=== PATIENT | female | born 1975 | race Two or more races ===

== ENCOUNTER 2022-01-06 19:57 | Emergency (ER) | payer MEDICAID, OTHER ==
[~2022-01-06] VITALS: Ht 157.5 cm; Wt 70.3 kg
[2022-01-06 20:52] LABS: Basophils # (auto) 0 10 ^3/uL (0-0.2); Eosinophils # (auto) 0.2 10 ^3/uL (0-0.8); Hematocrit 37.3 % (36.0-46.0); Lymphocytes # (auto) 1.6 10 ^3/uL (0.4-5.4); Monocytes # (auto) 0.5 10 ^3/uL (0-1.3); Neutrophils # (auto) 3.9 10 ^3/uL (1.6-8.6); Nucleated Red Blood Cells % 0.1 %
[2022-01-06 20:54] LABS: Basophils % (auto) 0.5 % (0.0-2.0); Eosinophils % (auto) 2.6 % (0.0-7.0); Hemoglobin 11.7 g/dL (12.2-16.2); Lymphocytes % (auto) 25.2 % (10.0-50.0); Mean Corpuscular Hgb Conc. 31.3 g/dL (32.0-36.0); Mean Corpuscular Volume 67.2 fL (80.0-100.0); Monocytes % (auto) 8.6 % (0.0-12.0); Neutrophils % (auto) 63.1 % (37.0-80.0); Red Blood Cells 5.55 10^6/uL (4.0-5.20); Red Cell Distribution Width 15.1 % (11.8-14.3); White Blood Cell 6.2 10^3/uL (4.4-10.8)
[2022-01-06 21:12] LABS: Albumin 3.4 g/dL (3.4-5.0); Calcium 9.2 mg/dL (8.5-10.1); Potassium 4.4 mmol/L (3.5-5.1)
[2022-01-06 21:15] LABS: BUN/Creatinine Ratio 16.7; Bilirubin, Total 0.3 mg/dL (0.2-1.0); Total Protein 7.6 g/dL (6.4-8.2)
[2022-01-07 02:30] VITALS: BP 133/93
[2022-01-07] MEDS ORDERED: DIAZ10TA3 PO (03:37)
== END 2022-01-07 03:44 | disposition home or self-care (01) ==
LOC: ER 19:57
DX: R07.9 Chest pain, unspecified (principal); G89.29 Other chronic pain; E11.9 Type 2 diabetes mellitus without complications; E78.5 Hyperlipidemia, unspecified; Z90.49 Acquired absence of other specified parts of digestive tract; Z88.8 Allergy status to other drugs, medicaments and biological substances
CPT/HCPCS: 36415; 71045; 80053; 83880; 84484; 85025; 93005

== ENCOUNTER 2022-11-30 21:21 | Inpatient (IN) | payer MEDICAID ==
[~2022-11-30] VITALS: Ht 157.5 cm; Wt 74.1 kg
[~2022-11-30 21:21] MED LIST: DIAZ10TA3 PO
[2022-11-30] MEDS ORDERED: SODIUM CHLORIDE 0.9% 1,000 ML IV ONE ×2 (23:30)
[2022-12-01 00:09] LABS: Albumin 3.3 g/dL (3.4-5.0); Basophils # (auto) 0 10 ^3/uL (0-0.2); Basophils % (auto) 0.3 % (0.0-2.0); Calcium 9.3 mg/dL (8.5-10.1); Eosinophils # (auto) 0.3 10 ^3/uL (0-0.8); Eosinophils % (auto) 3.1 % (0.0-7.0); Hematocrit 32.6 % (36.0-46.0); Lymphocytes % (auto) 27.5 % (10.0-50.0); Mean Corpuscular Hemoglobin 20.6 pg (28.0-32.0); Mean Corpuscular Hgb Conc. 30.8 g/dL (32.0-36.0); Mean Corpuscular Volume 66.9 fL (80.0-100.0); Monocytes # (auto) 0.8 10 ^3/uL (0-1.3); Monocytes % (auto) 7.2 % (0.0-12.0); Neutrophils # (auto) 6.9 10 ^3/uL (1.6-8.6); Neutrophils % (auto) 61.9 % (37.0-80.0); Potassium 4.1 mmol/L (3.5-5.1); Red Blood Cells 4.88 10^6/uL (4.0-5.20); Red Cell Distribution Width 16.1 % (11.8-14.3); White Blood Cell 11.1 10^3/uL (4.4-10.8)
[2022-12-01 00:11] LABS: BUN/Creatinine Ratio 16.7
[2022-12-01 00:14] LABS: Bilirubin, Total 0.1 mg/dL (0.2-1.0); Total Protein 8.9 g/dL (6.4-8.2)
[2022-12-01 00:21] LABS: Beta HCG, Quantitative < 1 mlU/mL (1-3)
[2022-12-01 02:21] LABS: Urine Bacteria NONE SEEN /hpf (None Seen); Urine Blood 3+ /uL (Negative); Urine Specific Gravity 1.014 (1.001-1.035); Urine WBC 356 /hpf (0 - 5); Urine WBC Clumps PRESENT /hpf (None Seen)
[2022-12-01] MEDS ORDERED: KETOROLAC TROMETH 60MG/2ML VIAL IM ONE (03:30)
[2022-12-01] MEDS ORDERED: DOCUSATE SOD 100 MG CAP PO PRN (04:00)
[2022-12-01] MEDS ORDERED: MORPHINE SULFATE INJ 2 MG/ml SYRG IV PRN ×2 (04:00)
[2022-12-01] MEDS ORDERED: DEXTROSE (50%) 50ML SYRG IV PRN (04:00)
[2022-12-01] MEDS ORDERED: NITROGLYCERIN 0.4 MG SL TAB SL PRN (04:00)
[2022-12-01] MEDS ORDERED: cefTRIAXone 1GM/50ML D5W 50 ML IV ONE (04:00)
[2022-12-01] MEDS ORDERED: ACETAMINOPHEN 325 MG TAB PO PRN (04:00)
[2022-12-01] MEDS ORDERED: HYDROcodone-ACET 5/325MG TAB PO PRN (04:00)
[2022-12-01] MEDS ORDERED: hydrALAZINE HCL 20 MG/ML VL IV PRN (04:15)
[2022-12-01] MEDS ORDERED: METOPROLOL TARTRATE 25 MG TAB PO ONE (04:15)
[2022-12-01] MEDS: SODIUM CHLORIDE 0.9% 1,000 ML IV SCH ×3 (04:19→20:40)
[2022-12-01] MEDS: ONDANSETRON HCL 4 MG/2 ML VIAL IV PRN ×2 (04:36→18:18)
[2022-12-01 06:06] LABS: Basophils # (auto) 0.1 10 ^3/uL (0-0.2); Hemoglobin 8.8 g/dL (12.2-16.2); Monocytes # (auto) 0.9 10 ^3/uL (0-1.3)
[2022-12-01 06:08] LABS: Basophils % (auto) 0.6 % (0.0-2.0); Eosinophils # (auto) 0.3 10 ^3/uL (0-0.8); Hematocrit 29.4 % (36.0-46.0); Lymphocytes # (auto) 3.3 10 ^3/uL (0.4-5.4); Lymphocytes % (auto) 31.7 % (10.0-50.0); Mean Corpuscular Hemoglobin 20.6 pg (28.0-32.0); Mean Corpuscular Hgb Conc. 29.9 g/dL (32.0-36.0); Mean Corpuscular Volume 68.7 fL (80.0-100.0); Monocytes % (auto) 8.4 % (0.0-12.0); Neutrophils # (auto) 5.9 10 ^3/uL (1.6-8.6); Neutrophils % (auto) 56.3 % (37.0-80.0); Red Blood Cells 4.28 10^6/uL (4.0-5.20); Red Cell Distribution Width 16.3 % (11.8-14.3); White Blood Cell 10.5 10^3/uL (4.4-10.8)
[2022-12-01] MEDS: ACCU-CHEK COMFORT CURVE STRIP VI SCH ×4 (06:17→22:00)
[2022-12-01] MEDS: InsuLIN REG 1unit/0.01ml Soln (100units/ml) SC SCH ×4 (06:17→17:43)
[2022-12-01 06:23] LABS: Albumin 2.6 g/dL (3.4-5.0); Calcium 7.9 mg/dL (8.5-10.1); Potassium 3.9 mmol/L (3.5-5.1)
[2022-12-01 06:26] LABS: BUN/Creatinine Ratio 21.4; Bilirubin, Total 0.2 mg/dL (0.2-1.0); Total Protein 7.3 g/dL (6.4-8.2)
[2022-12-01] MEDS ORDERED: ENOXAPARIN SOD 40 MG/0.4 ML SYRINGE SC SCH (10:00)
[2022-12-01] MEDS: METOPROLOL TARTRATE 25 MG TAB PO SCH ×2 (11:33→23:12)
[2022-12-01] MEDS ORDERED: ERTAPENEM SOD INJ 1 GM in SODIUM CHL 0.9% 50 ML IV ONE (15:15)
[2022-12-01 20:00] VITALS: BP 147/91
[2022-12-01] MEDS ORDERED: INSULIN LANTUS (GLARGINE) 1 /0.01ml (100units/ml) SC SCH (22:00)
[2022-12-01] MEDS ORDERED: InsuLIN REG 1unit/0.01ml Soln (100units/ml) SC SCH (22:00)
[2022-12-01] MEDS ORDERED: INSU100I44 SC (22:32)
[2022-12-01] MEDS ORDERED: GLIP5TAB12 PO (22:32)
[2022-12-01] MEDS ORDERED: FENO54TA4 PO (22:32)
[2022-12-02] MEDS ORDERED: cefTRIAXone 1GM/50ML D5W 50 ML IV SCH (09:00)
[2022-12-02] MEDS ORDERED: ERTAPENEM SOD INJ 1 GM in SODIUM CHL 0.9% 50 ML IV SCH (10:00)
== END 2022-12-02 00:06 | disposition left against medical advice (07) | DRG 383 ==
LOC: ER 21:21 → OVERFLOW 12-01 04:10 → TELE-WESTW 12-01 21:50
PROVIDERS: ADMIT Nurse Practitioner Family; ATTEND Internal Medicine
DX: L03.114 Cellulitis of left upper limb (principal); E11.42 Type 2 diabetes mellitus with diabetic polyneuropathy; I80.9 Phlebitis and thrombophlebitis of unspecified site; E87.1 Hypo-osmolality and hyponatremia; E88.09 Other disorders of plasma-protein metabolism, not elsewhere classified; D50.9 Iron deficiency anemia, unspecified; E11.65 Type 2 diabetes mellitus with hyperglycemia; N39.0 Urinary tract infection, site not specified; E66.9 Obesity, unspecified; Z53.29 Procedure and treatment not carried out because of patient's decision for other reasons; R00.0 Tachycardia, unspecified; Z20.822 Contact with and (suspected) exposure to COVID-19; R31.9 Hematuria, unspecified; E78.5 Hyperlipidemia, unspecified; I10 Essential (primary) hypertension; Z79.4 Long term (current) use of insulin; Z87.440 Personal history of urinary (tract) infections; Z87.442 Personal history of urinary calculi; Z88.8 Allergy status to other drugs, medicaments and biological substances; Z90.49 Acquired absence of other specified parts of digestive tract; Z68.29 Body mass index [BMI] 29.0-29.9, adult
CPT/HCPCS: 36415; 80053; 81001; 82962; 83036; 83605; 84443; 84702; 85025; 87086; 87426; 93971; 96361; 96365; 96367; 96372; 96375; G0378; J0696; J1335; J1815; J1885; J2405

== ENCOUNTER 2024-04-14 05:28 | Emergency (ER) | payer MEDICAID ==
[~2024-04-14] VITALS: Ht 157.5 cm; Wt 65.5 kg
[~2024-04-14 05:28] MED LIST changes: +FENO54TA4 PO; +GLIP5TAB21 PO; +INSU100I54 SC
[2024-04-14] MEDS: cefTRIAXone SOD 1,000 MG VL IM ONE (07:20)
[2024-04-14 07:48] VITALS: BP 138/94; PULSE 100; RESP 18; TEMP 97.9; O2SAT 100
[2024-04-14] MEDS ORDERED: BACDST PO (07:53)
[2024-04-14 08:19] LABS: Urine Bacteria FEW /hpf (None Seen); Urine Blood 2+ /uL (Negative); Urine Clarity Ex.Turbid (Clear); Urine Mucus FEW (None Seen); Urine Protein, UAD 1+ (Negative); Urine Specific Gravity 1.012 (1.001-1.035); Urine Urobilinogen Normal (Negative); Urine WBC 669 /hpf (0 - 5); Urine WBC Clumps PRESENT /hpf (None Seen)
[2024-04-14 08:20] LABS: Urine Color LIGHT-YELLOW (Yellow)
== END 2024-04-14 08:10 | disposition home or self-care (01) ==
LOC: ER 05:28
DX: N39.0 Urinary tract infection, site not specified (principal); E11.9 Type 2 diabetes mellitus without complications; E78.5 Hyperlipidemia, unspecified; Z46.6 Encounter for fitting and adjustment of urinary device; Z87.442 Personal history of urinary calculi; Z98.890 Other specified postprocedural states; Z88.8 Allergy status to other drugs, medicaments and biological substances; Z79.899 Other long term (current) drug therapy
CPT/HCPCS: 81001; 81025; 87086; 96372; 99283; J0696